=== PATIENT | male | born 1945 | race African-American/Black ===

== ENCOUNTER 2021-01-12 12:10 | Outpatient (CLI) | payer MEDICARE ==
[2021-01-12 21:55] LABS: SARS-CoV-2 PCR by NAA Not Detected (NotDetected)
== END 2021-01-12 12:11 | disposition home or self-care (01) ==
LOC: LABBT 12:10
DX: Z20.822 Contact with and (suspected) exposure to COVID-19 (principal)
CPT/HCPCS: U0003; U0005

== ENCOUNTER 2021-01-14 11:05 | Day surgery (SDC) | payer MEDICARE ==
[2021-01-13 14:41] VITALS: BMI 27.8
[~2021-01-14 11:05] MED LIST: Cyclopentolate 1% Opth Drop 2 ML BOT FS SCH; Famotidine/PF 20 mg/2ml Vial ONE; Fentanyl 100 MCG/2 ML VIAL ONE; Fluorouracil 100 MG, Enoxaparin Sodium 25 MG, EPINEPHrine 0.3 MG in Ophthalmic Irrigati... IRR SCH; Midazolam HCl 2 mg/2 ml Vial ONE; Phenylephrine 2.5% Ophth Soln 5 ML BOT FS SCH
[2021-01-14] MEDS ORDERED: Cyclopentolate 1% Opth Drop 2 ML BOT ONE (11:18)
[2021-01-14] MEDS ORDERED: Phenylephrine 2.5% Ophth Soln 5 ML BOT ONE (11:18)
[2021-01-14] MEDS ORDERED: Triamcinolone 40 MG/ML VIAL ONE (12:30)
[2021-01-14] MEDS ORDERED: Lidocaine 4% PF 5 ML AMP ONE (12:30)
[2021-01-14] MEDS ORDERED: Maxitrol 0.1% Opth Oint 3.5 GM TUBE ONE (12:30)
[2021-01-14] MEDS ORDERED: Enoxaparin Sodium 30 MG/0.3 ML SYRINGE ONE (12:30)
[2021-01-14] MEDS ORDERED: PHENYLEPHRINE-NS 100 MCG/ML 10 ML SYRINGE ONE (12:30)
[2021-01-14] MEDS ORDERED: CEFAZOLIN 1 GM VIAL ONE (12:30)
[2021-01-14] MEDS ORDERED: Metoclopramide HCl 10 MG/2 ML VIAL ONE (12:30)
[2021-01-14] MEDS ORDERED: Ondansetron PF 4 MG/2 ML Vial ONE (12:30)
[2021-01-14] MEDS ORDERED: Bupivacaine PF 0.75% SDV 10 ML ONE (12:30)
[2021-01-14] MEDS ORDERED: PROPOFOL 200 MG/20 ML VIAL ONE (12:30)
[2021-01-14] MEDS ORDERED: ePHEDrine 50 MG/ML VIAL ONE (12:30)
[2021-01-14] MEDS ORDERED: Lidocaine 1% PF 5 ML VIAL ONE ×2 (12:30)
[2021-01-14] MEDS ORDERED: HYDROcodone/Acetaminophen 5/325 mg Tablet ONE (16:38)
== END 2021-01-14 17:11 | disposition home or self-care (01) ==
LOC: SDC 11:05
PROVIDERS: ATTEND Ophthalmology Retina Specialist
PROC: 08T43ZZ Resection of Right Vitreous, Percutaneous Approach (ICD-10-PCS; principal; 2021-01-14)
PROC: 08NE3ZZ Release Right Retina, Percutaneous Approach (ICD-10-PCS; 2021-01-14)
DX: H33.001 Unspecified retinal detachment with retinal break, right eye (principal); Z98.41 Cataract extraction status, right eye; Z98.42 Cataract extraction status, left eye; Z95.5 Presence of coronary angioplasty implant and graft; Z96.1 Presence of intraocular lens
CPT/HCPCS: 67113; 93005; C1814; 93010; J0171; J0690; J1650; J2250; J2405; J2704; J2765; J3010; J3301; J3490; J9190; S0028

== ENCOUNTER 2023-09-12 17:15 | Inpatient (IN) | payer MEDICARE ==
[2023-09-12] MEDS ORDERED: cefTRIAXone (ROCEPHIN) 500 MG VIAL ONE (18:58)
[2023-09-12] MEDS ORDERED: Sodium Chloride 0.9% 100 ML ONE (19:01)
[2023-09-12] MEDS ORDERED: Azithromycin 500 MG VIAL ONE (19:01)
[2023-09-12 19:53] LABS: #Basophils Less than 0.03 10x3/uL (0.0-0.2); #Eosinphils Less than 0.03 10x3/uL (0.0-0.7); %Basophils 0.2 % (0.0-1.0); %Lymphocytes 4.7 % (21.0-51.0); %Monocytes 5.2 % (0.0-10.0); Hematocrit 26.9 % (42.0-52.0); Hemoglobin 9.2 g/dL (14.0-18.0); Mean Corpuscular HGB CONC 34.2 g/dL (32.0-36.0); Mean Corpuscular Hemoglobin 31.3 pg (27.0-31.0); Mean Corpuscular Volume 91.5 fL (78.0-98.0); Mean Platelet Volume 10.4 fL (7.4-10.4); Platelet Count 187 10x3/uL (130-400); RBC Distribution Width 13.3 % (11.5-14.5); Red Blood Cell (RBC) Count 2.94 mill/uL (4.70-6.10)
[2023-09-12 20:12] LABS: ALT (SGPT) 23 U/L (8-55); AST (SGOT) 39 U/L (5-34); Albumin 2.8 g/dL (3.4-4.8); Alkaline Phosphatase 57 U/L (40-110); BUN (Urea Nitrogen) 50 mg/dL (8.4-25.7); Bilirubin, Total 1.3 mg/dL (0.2-1.2); Calc. Creatinine Clearance 0 mL/min (70-130); Calcium 8.9 mg/dL (7.8-10.44); Carbon Dioxide 22 mmol/L (23-31); Estimated GFR 22; Globulin 3.9 g/dL (2.4-3.5); Glucose 141 mg/dL (83-110); Protein, Total 6.7 g/dL (5.8-8.1)
[2023-09-12 20:19] LABS: Anion Gap 15 mmol/L (10-20); Chloride 102 mmol/L (98-107); Potassium 3.2 mmol/L (3.5-5.1); Sodium 136 mmol/L (136-145)
[2023-09-13 00:59] VITALS: BMI 26.2
[2023-09-13] MEDS ORDERED: Acetaminophen 325 MG TAB PO PRN (02:57)
[2023-09-13] MEDS ORDERED: Senokot S 8.6-50 MG TAB PO PRN (02:57)
[2023-09-13] MEDS ORDERED: Ondansetron ODT 4 MG TAB PO PRN (02:57)
[2023-09-13 04:42] LABS: #Basophils Less than 0.03 10x3/uL (0.0-0.2); #Eosinphils Less than 0.03 10x3/uL (0.0-0.7); %Basophils 0.2 % (0.0-1.0); %Lymphocytes 3.8 % (21.0-51.0); %Monocytes 5.6 % (0.0-10.0); %Neutrophils 89.6 % (42.0-75.0); Hematocrit 27.6 % (42.0-52.0); Hemoglobin 9.3 g/dL (14.0-18.0); Mean Corpuscular HGB CONC 33.7 g/dL (32.0-36.0); Mean Corpuscular Hemoglobin 30.1 pg (27.0-31.0); Mean Corpuscular Volume 89.3 fL (78.0-98.0); Mean Platelet Volume 10.8 fL (7.4-10.4); Platelet Count 192 10x3/uL (130-400); RBC Distribution Width 13.3 % (11.5-14.5); Red Blood Cell (RBC) Count 3.09 mill/uL (4.70-6.10)
[2023-09-13 05:01] LABS: Anion Gap 17 mmol/L (10-20); BUN (Urea Nitrogen) 55 mg/dL (8.4-25.7); Calc. Creatinine Clearance 27 mL/min (70-130); Calcium 8.9 mg/dL (7.8-10.44); Carbon Dioxide 21 mmol/L (23-31); Chloride 101 mmol/L (98-107); Estimated GFR 23; Glucose 122 mg/dL (83-110); Magnesium 1.5 mg/dL (1.6-2.6); Sodium 136 mmol/L (136-145)
[2023-09-13 05:12] LABS: Hemoglobin A1c 5.9 % (4.0-6.0)
[2023-09-13] MEDS: Furosemide 20 MG (2 mL) VIAL SLOW IVP SCH (06:26)
[2023-09-13] MEDS: Magnesium 2 GM/50 ML(in water) 2 GM in Premix 1 BAG IVPB SCH (09:05)
[2023-09-13] MEDS: Potassium Chloride 20 MEQ TAB PO SCH (09:07)
[2023-09-13] MEDS: Carvedilol 3.125 MG TAB PO SCH (09:08)
[2023-09-13] MEDS: cloNIDine 0.3 MG TAB PO SCH (09:08)
[2023-09-13] MEDS: Atorvastatin Calcium 40 MG TAB PO SCH (09:08)
[2023-09-13] MEDS: Amlodipine 10 MG TAB PO SCH (09:08)
[2023-09-13] MEDS: Azithromycin 250 MG TAB PO SCH (09:08)
[2023-09-13] MEDS: Famotidine 20 MG TAB PO SCH (09:08)
[2023-09-13] MEDS: Potassium Bicarbonate/Cit Ac 20 MEQ TAB PO SCH (13:52)
[2023-09-13] MEDS: cefTRIAXone\\ROCEPHIN 1 GM in Sodium Chloride 0.9% 100 ML IVPB SCH (16:54)
[2023-09-14 04:53] LABS: Hematocrit 27.9 % (42.0-52.0); Hemoglobin 9.7 g/dL (14.0-18.0); Mean Corpuscular HGB CONC 34.8 g/dL (32.0-36.0); Mean Corpuscular Hemoglobin 30.6 pg (27.0-31.0); Mean Platelet Volume 11.5 fL (7.4-10.4); Platelet Count 211 10x3/uL (130-400); RBC Distribution Width 13.6 % (11.5-14.5); Red Blood Cell (RBC) Count 3.17 mill/uL (4.70-6.10)
[2023-09-14 05:17] LABS: Anion Gap 15 mmol/L (10-20); BUN (Urea Nitrogen) 67 mg/dL (8.4-25.7); Calc. Creatinine Clearance 26 mL/min (70-130); Calcium 8.8 mg/dL (7.8-10.44); Carbon Dioxide 23 mmol/L (23-31); Chloride 98 mmol/L (98-107); Estimated GFR 22; Glucose 112 mg/dL (83-110); Magnesium 1.9 mg/dL (1.6-2.6); Potassium 3.2 mmol/L (3.5-5.1); Sodium 133 mmol/L (136-145)
[2023-09-15] MEDS: Furosemide 40 MG TAB PO SCH (10:37)
[2023-09-16 04:21] LABS: Hematocrit 28.9 % (42.0-52.0); Hemoglobin 9.9 g/dL (14.0-18.0); Mean Corpuscular HGB CONC 34.3 g/dL (32.0-36.0); Mean Corpuscular Hemoglobin 30.5 pg (27.0-31.0); Mean Corpuscular Volume 88.9 fL (78.0-98.0); Mean Platelet Volume 11.9 fL (7.4-10.4); Platelet Count 232 10x3/uL (130-400); RBC Distribution Width 13.6 % (11.5-14.5); Red Blood Cell (RBC) Count 3.25 mill/uL (4.70-6.10)
[2023-09-16 04:49] LABS: Anion Gap 16 mmol/L (10-20); BUN (Urea Nitrogen) 67 mg/dL (8.4-25.7); Calc. Creatinine Clearance 30 mL/min (70-130); Calcium 8.8 mg/dL (7.8-10.44); Carbon Dioxide 24 mmol/L (23-31); Chloride 98 mmol/L (98-107); Estimated GFR 27; Glucose 123 mg/dL (83-110); Sodium 135 mmol/L (136-145)
[2023-09-16] MEDS: Potassium Chloride 20 MEQ TAB PO SCH (11:41)
[2023-09-16] MEDS: hydrALAZINE 25 MG TAB PO SCH (15:37)
[2023-09-16] MEDS: Potassium Bicarbonate/Cit Ac 20 MEQ TAB PO SCH (15:37)
[2023-09-16] MEDS: Carvedilol 6.25 MG TAB PO SCH (20:45)
[2023-09-16] MEDS ORDERED: Non-Formulary Item 1 EACH (Carvedilol [Coreg] 12.5 MG Tab) PO SCH (21:00)
[2023-09-17 11:40] VITALS: BP 103/56; TEMP 98.3
== END 2023-09-17 14:50 | disposition home or self-care (01) | DRG 193 ==
LOC: ERS 17:15 → 2SW 22:21
PROVIDERS: ADMIT Student in an Organized Health Care Education/Training Program; ATTEND Internal Medicine
DX: J12.9 Viral pneumonia, unspecified (principal); I50.33 Acute on chronic diastolic (congestive) heart failure; J96.01 Acute respiratory failure with hypoxia; T83.518A Infection and inflammatory reaction due to other urinary catheter, initial encounter; N17.9 Acute kidney failure, unspecified; I13.0 Hypertensive heart and chronic kidney disease with heart failure and stage 1 through stage 4 chronic kidney disease, or unspecified chronic kidney disease; E87.1 Hypo-osmolality and hyponatremia; N39.0 Urinary tract infection, site not specified; R78.81 Bacteremia; E87.6 Hypokalemia; Z79.84 Long term (current) use of oral hypoglycemic drugs; Z79.4 Long term (current) use of insulin; Z79.899 Other long term (current) drug therapy; E78.5 Hyperlipidemia, unspecified; I25.10 Atherosclerotic heart disease of native coronary artery without angina pectoris; N18.30 Chronic kidney disease, stage 3 unspecified; E83.42 Hypomagnesemia; D63.1 Anemia in chronic kidney disease; E11.22 Type 2 diabetes mellitus with diabetic chronic kidney disease; N31.9 Neuromuscular dysfunction of bladder, unspecified; B96.20 Unspecified Escherichia coli [E. coli] as the cause of diseases classified elsewhere
CPT/HCPCS: 36415; 71045; 80048; 80053; 83036; 83605; 83735; 83880; 83935; 84300; 84443; 85025; 85027; 87040; 87077; 87149; 87186; 93005; 93306; 93798; 96374; 96375; J0456; J0696; J1940; J3475; J3490